=== PATIENT | female | born 1975 | race Caucasian/White ===

== ENCOUNTER 2019-05-02 08:45 | Emergency (ER) | payer SELFPAY ==
[2019-05-02] MEDS ORDERED: Diazepam 5 MG Tab PO ONE (09:13)
[2019-05-02] MEDS ORDERED: Acetaminophen/HYDROcodone 325-5 MG Tab PO ONE (10:01)
--- NOTE | 2019-05-02 10:09 | EDM.PDOC ---
ED HPI GENERAL MEDICAL PROBLEM - General Chief Complaint: Back Pain or Injury Stated Complaint: BACK PAIN Time Seen by Provider: 05/02/19 10:06 Source of Information: Reports: Patient - History of Present Illness INITIAL COMMENTS - FREE TEXT/NARRATIVE: HISTORY AND PHYSICAL: History of present illness: [Patient presents with low back pain left greater than right she rates 8 out of 10 pain as nonradiating no footdrop saddle anesthesia bowel or urine symptoms Pain began 2 days prior she had sat on a storage container/tub, she fell through the lid resulting in mild symptoms, yesterday she did have a massage performed on the area, he was at work this morning sitting in a chair she stood from the chair she developed acute date out of 10 symptoms No fever nausea vomiting chills sweats no chest pain shortness breath headache dizziness palpitation no bowel or urine symptoms History of tubal ligation ] Review of systems: As per history of present illness and below otherwise all systems reviewed and negative. Past medical history: As per history of present illness and as reviewed below otherwise noncontributory. Surgical history: As per history of present illness and as reviewed below otherwise noncontributory. Social history: No reported history of drug or alcohol abuse. Family history: As per history of present illness and as reviewed below otherwise noncontributory. Physical exam: HEENT: Atraumatic, normocephalic, pupils reactive, negative for conjunctival pallor or scleral icterus, mucous membranes moist, throat clear, neck supple, nontender, trachea midline. Lungs: Clear to auscultation, breath sounds equal bilaterally, chest nontender. Heart: S1S2, regular, negative for clicks, rubs, or JVD. Abdomen: Soft, nondistended, nontender. Negative for masses or hepatosplenomegaly. Negative for costovertebral tenderness. Pelvis: Stable nontender. Genitourinary: Deferred. Rectal: Deferred. Extremities: Atraumatic, negative for cords or calf pain. Neurovascular unremarkable. Straight right leg raise does increase pain in the low back however there is no radiculopathy Neuro: Awake, alert, oriented. Cranial nerves II through XII unremarkable. Cerebellum unremarkable. Motor and sensory unremarkable throughout. Exam nonfocal. Diagnostics: [UA Lumbar spine]Plain films Therapeutics: [Valium 5 mg by mouth [place] 5 mg by mouth ] Tramadol Impression: [ lumbar paraspinous muscle spasm ] Definitive disposition and diagnosis as appropriate pending reevaluation and review of above. Lower back Pain Score (Numeric/FACES): 10 - Related Data Allergies Allergy/AdvReac Type Severity Reaction Status Date / Time ibuprofen Allergy Anaphylactic Verified 05/02/19 08:54 Shock Home Meds: Home Meds . [No Known Home Meds] 05/02/19 [History] Past Medical History - Past Health History Medical/Surgical History: Denies Medical/Surgical History - Infectious Disease History Infectious Disease History: Reports: None - Past Surgical History GI Surgical History: Reports: Cholecystectomy Social & Family History - Family History Family Medical History: Noncontributory - Tobacco Use Smoking Status *Q: Current Every Day Smoker Years of Tobacco use: 30 Packs/Tins Daily: 1 ED ROS GENERAL - Review of Systems Review Of Systems: See Below ED EXAM, GENERAL - Physical Exam Exam: See Below Course - Vital Signs Last Recorded V/S: Last Vital Signs Temp 97.3 F 05/02/19 08:54 Pulse 101 H 05/02/19 08:54 Resp 22 H 05/02/19 08:54 BP 118/56 L 05/02/19 08:54 Pulse Ox 97 05/02/19 08:54 - Orders/Labs/Meds Orders: Active Orders 24 hr Category Date Time Status Lumbar Spine 2 or 3V [CR] Stat Exams 05/02/19 09:02 Taken Labs: Laboratory Tests 05/02/19 05/02/19 Range/Units 09:08 09:08 Urine Color YELLOW Urine Appearance SLT CLOUDY Urine pH 5.5 (5.0-8.0) Ur Specific [place] 1.025 (1.001-1.035) Urine Protein NEGATIVE (NEGATIVE) mg/dL Urine Glucose (UA) NEGATIVE (NEGATIVE) mg/dL Urine Ketones NEGATIVE (NEGATIVE) mg/dL Urine Occult Blood NEGATIVE (NEGATIVE) Urine Nitrite NEGATIVE (NEGATIVE) Urine Bilirubin NEGATIVE (NEGATIVE) Urine Urobilinogen 0.2 (<2.0) EU/dL Ur Leukocyte Esterase NEGATIVE (NEGATIVE) Urine HCG, Qual NEGATIVE (NEGATIVE) Meds: Medications Discontinued Medications Generic Name Dose Route Start Last Admin Trade Name Freq PRN Reason Stop Dose Admin Hydrocodone Bitart/Acetaminophen 1 tab 05/02/19 10:01 [place] 325-5 Mg PO 05/02/19 10:02 ONETIME ONE Diazepam 5 mg 07/27/19 09:13 05/02/19 09:17 Valium. PO 05/02/19 09:14 5 mg ONETIME ONE Administration Departure - Departure Time of Disposition: 10:11 Disposition: Home, Self-Care 01 Condition: Good Clinical Impression: Lumbar paraspinal muscle spasm - Discharge Information Referrals: PCP,None [Primary Care Provider] - Forms: ED Department Discharge Additional Instructions: Medication as prescribed Ice 20 minute intervals 3 times daily as needed Return if symptoms persist or worsen Follow-up with primary care in 2 weeks sooner as needed [facility] - Primary Care [address] [place] [id number] The following information is given to patients seen in the emergency department who are being discharged to home. This information is to outline your options for follow-up care. We provide all patients seen in our emergency department with a follow-up referral. The need for follow-up, as well as the timing and circumstances, are variable depending upon the specifics of your emergency department visit. If you don't have a primary care physician on staff, we will provide you with a referral. We always advise you to contact your personal physician following an emergency department visit to inform them of the circumstance of the visit and for follow-up with them and/or the need for any referrals to a consulting specialist. The emergency department will also refer you to a specialist when appropriate. This referral assures that you have the opportunity for follow-up care with a specialist. All of these measure are taken in an effort to provide you with optimal care, which includes your follow-up. Under all circumstances we always encourage you to contact your private physician who remains a resource for coordinating your care. When calling for follow-up care, please make the office aware that this follow-up is from your recent emergency room visit. If for any reason you are refused follow-up, please contact the [facility] emergency department at and asked to speak to the emergency department charge nurse. - My Orders Last 24 Hours: My Active Orders 05/02/19 09:02 Lumbar Spine 2 or 3V [CR] Stat - Assessment/Plan Last 24 Hours: My Active Orders 05/02/19 09:02 Lumbar Spine 2 or 3V [CR] Stat
--- NOTE | 2019-05-02 10:12 | CR ---
INDICATION: Pain TECHNIQUE: 3-view lumbar spine. COMPARISON: none FINDINGS: The lumbar vertebrae are anatomically aligned. The disc spaces are of normal height. The facet joints appear intact. There is no evidence of a fracture or intrinsic bone lesion. The SI joints appear normal. The paraspinal soft tissues appear normal. IMPRESSION: Negative lumbar spine. Dictated by Dieudonne Crump MD @ May 02 2019 10:10AM Signed by Dr. Dieudonne Crump @ May 02 2019 10:11AM
== END 2019-05-02 10:31 | disposition home or self-care (01) ==
LOC: MW.ED 08:45
DX: M62.830 Muscle spasm of back (principal); F17.210 Nicotine dependence, cigarettes, uncomplicated; Z88.6 Allergy status to analgesic agent
CPT/HCPCS: 72100; 81003; 81025; 99283; A9270

== ENCOUNTER 2019-06-05 12:51 | Emergency (ER) | payer OTHER ==
--- NOTE | 2019-06-05 12:59 | EDM.PDOC ---
ED HPI GENERAL MEDICAL PROBLEM - General Chief Complaint: Neuro Symptoms/Deficits Stated Complaint: DIZZY, Time Seen by Provider: 06/05/19 12:59 Source of Information: Reports: Patient History Limitations: Reports: No Limitations - History of Present Illness INITIAL COMMENTS - FREE TEXT/NARRATIVE: HISTORY AND PHYSICAL: History of present illness: Patient is a 44-year-old female who presents to the emergency room with complaints of dizziness. She states last week she was seen in the walk-in clinic for nausea, vomiting, generalized stomach upset and cough. She was placed on azithromycin and given Tessalon Perles. She has taken 4 days of the azithromycin, has 1 day left. She states over the past 2 days she has had dizziness which she notices mostly when she is ambulating or having to move around. When lying still she has no symptoms of dizziness, change in vision, headache or sinus pain and pressure. Patient denies any fever, chills, headache, change in vision, syncope or near syncope. Denies any recent head injury, trauma or falls. Denies any chest pain, back pain, shortness of breath or cough. Denies any abdominal pain, nausea, vomiting, diarrhea, constipation or dysuria. Has not noted any blood in urine or stool. Patient has been eating and drinking appropriately. Review of systems: As per history of present illness and below otherwise all systems reviewed and negative. Past medical history: As per history of present illness and as reviewed below otherwise noncontributory. Surgical history: As per history of present illness and as reviewed below otherwise noncontributory. Social history: See social history for further information Family history: As per history of present illness and as reviewed below otherwise noncontributory. Physical exam: General: Well-developed and well nourished 44 she'll female. Alert and oriented. Nontoxic appearing and in no acute distress. HEENT: Atraumatic, normocephalic, pupils equal and reactive bilaterally, negative for conjunctival pallor or scleral icterus, mucous membranes moist, TMs normal bilaterally, throat clear, neck supple, nontender, trachea midline. No drooling or trismus noted. No meningeal signs. No hot potato voice noted. Lungs: Clear to auscultation, breath sounds equal bilaterally, chest nontender. Heart: S1S2, regular rate and rhythm without overt murmur Abdomen: Soft, nondistended, nontender. Negative for masses or hepatosplenomegaly. Negative for costovertebral tenderness. Pelvis: Stable nontender. Genitourinary: Deferred. Rectal: Deferred. Skin: Intact, warm, dry. No lesions or rashes noted. Extremities: Atraumatic, moves all extremities per self without difficulty or deficits, negative for cords or calf pain. Neurovascular unremarkable. Neuro: Awake, alert, oriented. Cranial nerves II through XII unremarkable. Cerebellum unremarkable. Motor and sensory unremarkable throughout. Exam nonfocal. Notes: Lab work is unremarkable. EKG is within normal limits. No changes with the orthostatic vital signs. Patient states she feels well enough to be discharged home. Supportive care measures were reviewed and discussed. Voices understanding and is agreeable to plan of care. Denies any further questions or concerns at this time. Diagnostics: CBC, CMP, troponin, EKG, orthostatic vital signs Therapeutics: IV fluid Prescription: Augmentin Impression: Dizziness Sinusitis Plan: 1. Please use Tylenol and/or Ibuprofen as needed for pain and fever management. Meclizine over the counter as needed/directed. 2. Get plenty of Rest. Encourage fluids to prevent dehydration. 3. Please follow up with your primary care provider. Return to the ED as needed as discussed. Definitive disposition and diagnosis as appropriate pending reevaluation and review of above. generalized body aches Pain Score (Numeric/FACES): 5 - Related Data Allergies Allergy/AdvReac Type Severity Reaction Status Date / Time ibuprofen Allergy Anaphylactic Verified 06/05/19 13:11 Shock Home Meds: Home Meds . [No Known Home Meds] 05/02/19 [History] Past Medical History - Past Health History Medical/Surgical History: Denies Medical/Surgical History - Infectious Disease History Infectious Disease History: Reports: None - Past Surgical History GI Surgical History: Reports: Cholecystectomy Social & Family History - Family History Family Medical History: Noncontributory ED ROS GENERAL - Review of Systems Review Of Systems: ROS reveals no pertinent complaints other than HPI. ED EXAM, NEURO - Physical Exam Exam: See Below (See dictation) Course - Vital Signs Last Recorded V/S: Last Vital Signs Temp 98.1 F 06/05/19 13:08 Pulse 92 06/05/19 13:08 Resp 18 06/05/19 13:08 BP 132/86 06/05/19 13:08 Pulse Ox 98 06/05/19 13:08 Orthostatic Blood Pressure [ 113/84 Standing] Orthostatic Blood Pressure [ 117/79 Sitting] Orthostatic Blood Pressure [ 114/70 Supine] - Orders/Labs/Meds Orders: Active Orders 24 hr Category Date Time Status EKG 12 Lead [EKG Documentation Completion] [RC] STAT Care 06/05/19 12:59 Active Orthostatic Vital Signs [RC] ASDIRECTED Care 06/05/19 13:01 Active UA RFX LINDA AND CULT IF INDIC [URIN] Stat Lab 06/05/19 13:49 Ordered Sodium Chloride 0.9% [Saline Flush] Med 06/05/19 13:01 Active 10 ml FLUSH ASDIRECTED PRN Sodium Chloride 0.9% [Saline Flush] Med 06/05/19 13:01 Active 2.5 ml FLUSH ASDIRECTED PRN Saline Lock Insert [OM.PC] Stat Oth 06/05/19 13:01 Ordered Medication Orders Sodium Chloride (Saline Flush) 10 ml FLUSH ASDIRECTED PRN PRN Reason: Keep Vein Open Last Admin: 06/05/19 13:44 Dose: 10 ml Sodium Chloride (Saline Flush) 2.5 ml FLUSH ASDIRECTED PRN PRN Reason: Keep Vein Open Last Admin: 06/05/19 13:44 Dose: 2.5 ml Labs: Laboratory Tests 06/05/19 06/05/19 06/05/19 Range/Units 13:46 13:46 13:46 WBC 10.36 (4.0-11.0) K/uL RBC 4.53 (4.30-5.90) M/uL Hgb 15.5 (12.0-16.0) g/dL Hct 45.2 (36.0-46.0) % MCV 99.8 H (80.0-98.0) fL MCH 34.2 H (27.0-32.0) pg MCHC 34.3 (31.0-37.0) g/dL RDW Std Deviation 47.1 (28.0-62.0) fl RDW Coeff of [place] 13 (11.0-15.0) % Plt Count 266 (150-400) K/uL MPV 10.10 (7.40-12.00) fL Neut % (Auto) 58.6 (48.0-80.0) % Lymph % (Auto) 32.9 (16.0-40.0) % [place] % (Auto) 5.1 (0.0-15.0) % Eos % (Auto) 3.1 (0.0-7.0) % Baso % (Auto) 0.3 (0.0-1.5) % Neut # (Auto) 6.1 H (1.4-5.7) K/uL Lymph # (Auto) 3.4 H (0.6-2.4) K/uL [place] # (Auto) 0.5 (0.0-0.8) K/uL Eos # (Auto) 0.3 (0.0-0.7) K/uL Baso # (Auto) 0.0 (0.0-0.1) K/uL Nucleated RBC % 0.0 /100WBC Nucleated RBCs # 0 K/uL Sodium 141 (136-145) mmol/L Potassium 3.9 (3.5-5.1) mmol/L Chloride 108 H (98-107) mmol/L Carbon Dioxide 20.2 L (21.0-32.0) mmol/L BUN 9 (7.0-18.0) mg/dL Creatinine 0.7 (0.6-1.0) mg/dL Est Cr Clr Drug Dosing 75.78 mL/min Estimated GFR (MDRD) > 60.0 ml/min Glucose 97 (74-106) mg/dL Calcium 9.0 (8.5-10.1) mg/dL Total Bilirubin 0.2 (0.2-1.0) mg/dL AST 23 (15-37) IU/L ALT 45 (14-63) IU/L Alkaline Phosphatase 89 (46-116) U/L Troponin I < 0.050 (0.000-0.056) ng/mL Total Protein 6.6 (6.4-8.2) g/dL Albumin 3.3 L (3.4-5.0) g/dL Globulin 3.3 (2.6-4.0) g/dL Albumin/Globulin Ratio 1.0 (0.9-1.6) Urine Color YELLOW Urine Appearance CLEAR Urine pH 6.0 (5.0-8.0) Ur Specific [place] 1.010 (1.001-1.035) Urine Protein NEGATIVE (NEGATIVE) mg/dL Urine Glucose (UA) NEGATIVE (NEGATIVE) mg/dL Urine Ketones NEGATIVE (NEGATIVE) mg/dL Urine Occult Blood MODERATE H (NEGATIVE) Urine Nitrite NEGATIVE (NEGATIVE) Urine Bilirubin NEGATIVE (NEGATIVE) Urine Urobilinogen 0.2 (<2.0) EU/dL Ur Leukocyte Esterase NEGATIVE (NEGATIVE) Urine RBC 1-3 (0-2/HPF) Urine WBC 0-2 (0-5/HPF) Ur Epithelial Cells FEW (NONE-FEW) Urine Bacteria RARE (NEGATIVE) Urine Mucus LIGHT (NONE-MOD) Meds: Medications Generic Name Dose Route Start Last Admin Trade Name Freq PRN Reason Stop Dose Admin Sodium Chloride 10 ml 06/05/19 13:01 06/05/19 13:44 Saline Flush FLUSH 10 ml ASDIRECTED PRN Administration Keep Vein Open Sodium Chloride 2.5 ml 06/05/19 13:01 06/05/19 13:44 Saline Flush FLUSH 2.5 ml ASDIRECTED PRN Administration Keep Vein Open Discontinued Medications Generic Name Dose Route Start Last Admin Trade Name Freq PRN Reason Stop Dose Admin Sodium Chloride 1,000 mls @ 999 mls/hr 06/05/19 13:09 06/05/19 13:43 Normal Saline IV 06/05/19 14:09 999 mls/hr STAT ONE Administration Meclizine HCl 25 mg 06/05/19 13:20 06/05/19 13:43 Antivert PO 06/05/19 13:21 25 mg ONETIME ONE Administration Departure - Departure Time of Disposition: 14:37 Disposition: Home, Self-Care 01 Clinical Impression: Dizziness Sinusitis Qualifiers: Sinusitis location: maxillary Chronicity: unspecified Qualified Code(s): J32.0 - Chronic maxillary sinusitis - Discharge Information Instructions: Dizziness, [id number], Sinusitis, Adult, [id number] Referrals: PCP,Unknown [Primary Care Provider] - Forms: ED Department Discharge Additional Instructions: The following information is given to patients seen in the emergency department who are being discharged to home. This information is to outline your options for follow-up care. We provide all patients seen in our emergency department with a follow-up referral. The need for follow-up, as well as the timing and circumstances, are variable depending upon the specifics of your emergency department visit. If you don't have a primary care physician on staff, we will provide you with a referral. We always advise you to contact your personal physician following an emergency department visit to inform them of the circumstance of the visit and for follow-up with them and/or the need for any referrals to a consulting specialist. The emergency department will also refer you to a specialist when appropriate. This referral assures that you have the opportunity for follow-up care with a specialist. All of these measure are taken in an effort to provide you with optimal care, which includes your follow-up. Under all circumstances we always encourage you to contact your private physician who remains a resource for coordinating your care. When calling for follow-up care, please make the office aware that this follow-up is from your recent emergency room visit. If for any reason you are refused follow-up, please contact the [facility] Emergency Department at and asked to speak to the emergency department charge nurse. [facility] Primary Care [address] [place] [id number] [place] [address] 1. Please use Tylenol and/or Ibuprofen as needed for pain and fever management. Meclizine over the counter as needed/directed. 2. Get plenty of Rest. Encourage fluids to prevent dehydration. 3. Please follow up with your primary care provider. Return to the ED as needed as discussed. - My Orders Last 24 Hours: My Active Orders 06/05/19 12:59 EKG 12 Lead [EKG Documentation Completion] [RC] STAT 06/05/19 13:01 Orthostatic Vital Signs [RC] ASDIRECTED Sodium Chloride 0.9% [Saline Flush] 10 ml FLUSH ASDIRECTED PRN Sodium Chloride 0.9% [Saline Flush] 2.5 ml FLUSH ASDIRECTED PRN Saline Lock Insert [OM.PC] Stat 06/05/19 13:49 UA RFX LINDA AND CULT IF INDIC [URIN] Stat - Assessment/Plan Last 24 Hours: My Active Orders 06/05/19 12:59 EKG 12 Lead [EKG Documentation Completion] [RC] STAT 06/05/19 13:01 Orthostatic Vital Signs [RC] ASDIRECTED Sodium Chloride 0.9% [Saline Flush] 10 ml FLUSH ASDIRECTED PRN Sodium Chloride 0.9% [Saline Flush] 2.5 ml FLUSH ASDIRECTED PRN Saline Lock Insert [OM.PC] Stat 06/05/19 13:49 UA RFX LINDA AND CULT IF INDIC [URIN] Stat
[2019-06-05] MEDS ORDERED: Sodium Chloride 0.9% 2.5 ML Syringe FLUSH PRN (13:01)
[2019-06-05] MEDS ORDERED: Sodium Chloride 0.9% 10 ML Syringe FLUSH PRN (13:01)
[2019-06-05] MEDS ORDERED: Sodium Chloride 0.9% 1,000 ML IV ONE (13:09)
[2019-06-05] MEDS ORDERED: Meclizine 25 MG Tab PO ONE (13:20)
[2019-06-05 14:19] LABS: CHLORIDE,CL 108 mmol/L (98-107); SODIUM,NA 141 mmol/L (136-145)
--- NOTE | 2019-06-05 14:29 | CR ---
INDICATION: Dizziness TECHNIQUE: Chest 1 view. COMPARISON: None FINDINGS: Cardiovascular and mediastinum: Heart size and vasculature are normal in caliber and appearance. Mediastinum is within normal limits. Lungs and pleural space: Lungs are clear. No sign of infiltrate or mass. No sign of pleural effusion. No pneumothorax. Bones and soft tissues: No significant findings. IMPRESSION: Unremarkable chest. Dictated by: Alfredo Crane MD @ 06/05/2019 14:29:15 (Electronically Signed)
--- NOTE | 2019-06-05 15:17 | CT ---
INDICATION: Headache and dizziness. TECHNIQUE: Scanning of the head was performed without IV contrast material. Coronal and sagittal reconstructions were obtained. COMPARISON: None. FINDINGS: No acute hemorrhage, parenchymal attenuation abnormality, or mass effect is demonstrated. Differentiation between the lopez matter and white matter is preserved. The ventricles and other subarachnoid spaces are within normal limits. No calvarial abnormality is evident. Ethmoid sinus membrane thickening is demonstrated with complete opacification of a number of air cells bilaterally. Membrane thickening in the other paranasal sinuses also noted. No sinus fluid is apparent. The mastoid sinuses are clear. IMPRESSION: 1. Negative noncontrast head CT. 2. Paranasal sinus disease, as above. Please note that all CT scans at this facility use dose modulation, iterative reconstruction, and/or weight-based dosing when appropriate to reduce radiation dose to as low as reasonably achievable. Dictated by Ezequiel Horn MD @ Jun 05 2019 3:12PM Signed by Dr. Ezequiel Horn @ Jun 05 2019 3:16PM
== END 2019-06-05 15:32 | disposition home or self-care (01) ==
LOC: MW.ED 12:51
DX: J32.0 Chronic maxillary sinusitis (principal); R42 Dizziness and giddiness; Z88.6 Allergy status to analgesic agent
CPT/HCPCS: 36415; 70450; 71045; 80053; 81001; 84484; 85025; 93005; 96360; 99284; A9270; J7040